=== PATIENT | female | born 1980 | race Caucasian/White ===

== ENCOUNTER 2016-12-17 20:01 | Emergency (ER) | payer OTHER ==
[~2016-12-17] VITALS: Ht 167.6 cm; Wt 77.1 kg
[~2016-12-17 20:01] MED LIST: NAPROSYN500 M1 PO; NEURONTIN300 M1 PO; ULTRAM50 M1 PO
[2016-12-17] MEDS ORDERED: NEURONTIN300 M1 PO (20:39)
[2016-12-17] MEDS ORDERED: NEXIUM40 M1 PO (20:39)
[2016-12-17] MEDS ORDERED: TRAZODONE HCL100 M1 PO (20:40)
--- NOTE | 2016-12-17 20:40 | ED HEADACHE COMPLAINT ---
History of Present Illness General Chief Complaint: Headache Stated Complaint: "MIGRAINE [id number]" Source: patient Exam Limitations: no limitations Vital Signs & Intake/Output Vital Signs & Intake/Output Vital Signs Date Time Temp Pulse Resp B/P Pulse O2 O2 Flow FiO2 Ox Delivery Rate 12/17 2209 97.6 75 20 116/71 98 12/17 2045 Room Air 12/17 2016 98.0 93 18 126/90 98 Room Air ED Intake and Output 12/18 0000 12/17 1200 Intake Total Output Total Balance Patient 170 lb Weight Allergies Coded Allergies: amoxicillin (From AUGMENTIN) (PER PT HAD A REACTION A KID 12/17/16) clavulanic acid (From AUGMENTIN) (PER PT HAD A REACTION A KID 12/17/16) prednisone (HEART RATE GOES UP TO 160S 12/17/16) raspberry (ANAPHYLAXIS 12/17/16) Reconcile Medications Esomeprazole (Nexium) 40 MG CAPSULE.DR 1 CAP PO PRN GI (Reported) Gabapentin (Neurontin) 300 MG CAPSULE 1,200 MG PO BID NERVE PAIN (Reported) Ondansetron (Zofran Odt) 4 MG TAB.RAPDIS 1 TAB SL TID PRN NAUSEA Tramadol HCl 50 MG TABLET 1-2 TAB PO TID PRN PAIN THIRTY...[id number] Trazodone HCl 100 MG TABLET 1 TAB PO PRN SLEEP (Reported) Triage Note: PT TO TRIAGE WITH C/O MIGRAIN x2DAYS AND TRIGEMINAL NEURALGIA SINCE THIS MORNING, PT REFERRED TO ER BY [facility]. Triage Nurses Notes Reviewed? yes Onset: Gradual Duration: day(s): Timing: recent history Quality/Severity: moderate Head Injury Location: global, and around left eye Modifying Factors: Improves With: rest. Associated Symptoms: nausea/vomiting : No Patient currently breastfeeds: No HPI: 36-year-old woman history of migraine headache presents with one-week history of diffuse headache, left maria luisa-orbital pain with mild tearing of her left eye, consistent with her prior episodes of migraine headache. She notes that she has no fever or chills this changes. She does feel nauseous, and has photophobia. She has no focal weakness. She is otherwise well. Past History Travel History Traveled to [place] past 21 day No Medical History Any Pertinent Medical History? see below for history Neurological: NONE EENT: NONE Cardiovascular: MVP Respiratory: NONE Gastrointestinal: NONE Hepatic: NONE Renal: NONE Musculoskeletal: NONE Psychiatric: MAJOR DEPRESSIVE DISORDER PTSD BORDERLINE PERSONALITY DI Endocrine: NONE Blood Disorders: NONE Cancer(s): NONE MARBLE RUBBER/Reproductive: NONE Surgical History Surgical History: N Psychosocial History Who do you live with Mother What is your primary language Upper Sorbian Tobacco Use: Never used Family History Hx Contributory? No Review of Systems Review of Systems Constitutional: Reports: no symptoms. Eyes: Reports: no symptoms. Ears, Nose, Throat, Mouth: Reports: no symptoms. Respiratory: Reports: no symptoms. Cardiovascular: Reports: no symptoms. Gastrointestinal/Abdominal: Reports: no symptoms. Genitourinary: Reports: no symptoms. Musculoskeletal: Reports: no symptoms. Skin: Reports: no symptoms. Neurological/Psychological: Reports: no symptoms. Hematologic/Endocrine: Reports: no symptoms. Endocrine: Reports: no symptoms. Immunologic/Allergic: Reports: no symptoms. All Other Systems: Reviewed and Negative Physical Exam Physical Exam General Appearance: well developed/nourished, mild distress Head: diffuse tenderness around the occipital scalp musculature. Eyes: Bilateral: normal appearance, PERRL, EOMI. Ears, Nose, Throat: normal pharynx, normal ENT inspection, hearing grossly normal Neck: normal inspection, supple, full range of motion Respiratory: normal breath sounds, chest non-tender, no respiratory distress, quiet respiration, lungs clear Cardiovascular: regular rate/rhythm Gastrointestinal: normal bowel sounds, soft, non-tender, no organomegaly Back: normal inspection Extremities: normal inspection Psychiatric: awake, alert, oriented x 3 Cranial Nerves: normal hearing, normal speech, PERRL Coordination/Gait: normal gait Motor/Sensory: no motor/sensory deficits Reflexes: 1+: bicep (R), bicep (L). Skin: intact, normal color, warm/dry Core Measures Severe Sepsis Present: No Septic Shock Present: No Progress Differential Diagnosis: cluster METCALF, migraine METCALF, musculoskeletal pain, sinusitis , tension METCALF Plan of Care: pt given oxygen and supportive medications. After more than 1 hour, she feels better and is safe for discharge with close follow up advised. Departure Departure Disposition: HOME OR SELF CARE Condition: Stable Clinical Impression Primary Impression: Migraine headache Referrals: KALIN BARBER MD (PCP/Family) Departure Forms: Customer Survey General Discharge Information Prescriptions: Current Visit Scripts Tramadol HCl 1-2 TAB PO TID PRN PAIN #30 TAB THIRTY...[id number] Ondansetron (Zofran Odt) 1 TAB SL TID PRN NAUSEA #10 TAB Ref 1
[2016-12-17] MEDS ORDERED: ZOFRAN ODT4 M1 SL (20:49)
[2016-12-17] MEDS ORDERED: TRAMADOL HCL50 M1 PO (20:49)
[2016-12-17 22:10] VITALS: BP 116/71
== END 2016-12-17 22:31 ==
LOC: ERH 20:01
DX: G43.909 Migraine, unspecified, not intractable, without status migrainosus (principal)
CPT/HCPCS: 96372; J1885; J3101